=== PATIENT | male | born 1955 | race African-American/Black ===

== ENCOUNTER 2017-09-03 15:31 | Emergency (ER) | payer MEDICAID, OTHER ==
[2017-09-03 15:53] LABS: #Basophils 0.1 thou/uL (0.0-0.2); #Eosinphils 0.1 thou/uL (0.0-0.7); #Lymphocytes 1.6 thou/uL (1.20-3.40); #Monocytes 0.7 thou/uL (0.11-0.59); #Neutrophils 2.8 thou/uL (1.40-6.50); %Eosinophils 1.2 % (0.0-10.0); %Lymphocytes 30.8 % (21.0-51.0); %Monocytes 12.5 % (0.0-10.0); %Neutrophils 54.6 % (42.0-75.0); Hemoglobin 15.4 g/dL (14.0-18.0); Mean Corpuscular HGB CONC 35.6 g/dL (32.0-36.0); Mean Corpuscular Hemoglobin 37.2 pg (27.0-31.0); Mean Platelet Volume 7.3 fL (7.4-10.4); Platelet Count 182 thou/uL (130-400); RBC Distribution Width 11.6 % (11.5-14.5); Red Blood Cell (RBC) Count 4.13 mill/uL (4.70-6.10); White Blood Cell (WBC) Count 5.2 thou/uL (4.8-10.8)
[2017-09-03 16:16] LABS: ALT (SGPT) 25 U/L (8-55); AST (SGOT) 31 U/L (5-34); Albumin 4.4 g/dL (3.5-5.0); Alkaline Phosphatase 60 U/L (40-150); Anion Gap 17 mmol/L (10-20); BUN (Urea Nitrogen) 7 mg/dL (8.4-25.7); Bilirubin, Total 0.4 mg/dL (0.2-1.2); CK (CPK) 435 U/L (30-200); Calc. Creatinine Clearance 0 mL/min (70-130); Calcium 9.1 mg/dL (7.8-10.44); Carbon Dioxide 22 mmol/L (22-29); Chloride 106 mmol/L (98-107); Estimated GFR-MDRD Greater than 90; Globulin 2.5 g/dL (2.4-3.5); Glucose 89 mg/dL (70-105); Lipase 46 U/L (8-78); Potassium 3.7 mmol/L (3.5-5.1); Protein, Total 6.9 g/dL (6.0-8.3); Sodium 141 mmol/L (136-145)
[2017-09-03 16:20] LABS: CKMB 2.7 ng/mL (0-6.6); Troponin I Less than 0.010 ng/mL (< 0.028)
== END 2017-09-03 16:11 | disposition left against medical advice (07) ==
LOC: ERS 15:31
DX: R07.2 Precordial pain (principal); I10 Essential (primary) hypertension; F20.9 Schizophrenia, unspecified
CPT/HCPCS: 80053; 82550; 82553; 83690; 84484; 85025; 93005; 94760; 99406